=== PATIENT | male | born 1950 | race Hispanic/Latino ===

== ENCOUNTER 2017-02-02 12:01 | Emergency (ER) | payer MEDICARE, OTHER ==
[2017-02-02 12:07] VITALS: BP 138/71; PULSE 94; RESP 18; TEMP 98.7; O2SAT 100; BMI 25.0
--- NOTE | 2017-02-02 12:33 | ED PDOC ---
Lower Extremity Pain/Injury Time Seen by Provider: 02/02/17 12:09 Chief Complaint (Provider): knee pain History Per: Patient History/Exam Limitations: no limitations Onset/Duration Of Symptoms: Persistent Current Symptoms Are (Timing): Still Present Additional History Per: Patient Additional Complaint(s): The patient is a 66yo male, past medical history of gastritis, presents to the ED for evaluation of bilateral cramping pain in his quadriceps which he attributes to withdrawal symptoms. Patient reports he has had bilateral knee replacements and 4 other lower extremity surgeries and in order to manage his pain, he has been taking Tramadol. The patient says Dr. Whitten, who he follows up with for the pain, provides him with Tramadol but since Dr. Whitten has been on vacation, the patient states he has not been able to refill and continue his medication. The patient also states he has been attempting to stop using narcotics for his pain and has been using lidocaine patches and Motrin for his pain; patient states he has minimal relief and the Motrin "eats away" at his stomach. Of note, patient states he has been given Suboxone in the past and has had no relief of his withdrawal symptoms with this med. Patient reports associated diarrhea and feeling agitated. PCP: Dr. Whitten Past Medical History Reviewed: Historical Data, Nursing Documentation, Vital Signs Vital Signs: Last Vital Signs Temp 98.7 F 02/02/17 12:04 Pulse 94 H 02/02/17 12:04 Resp 18 02/02/17 12:04 BP 138/71 02/02/17 12:04 Pulse Ox 100 02/02/17 12:04 - Medical History PMH: Hypercholesterolemia, Chronic Pain - Surgical History Other surgeries: bilateral knee replacements, lower extremity surgeries - Family History Family History: States: No Known Family Hx - Living Arrangements Living Arrangements: With Family - Social History Current smoker - smoking cessation education provided: Yes (less than 1 pack per day) Alcohol: None Drugs: Denies - Home Medications Home Medications: Ambulatory Orders Medication Instructions Recorded Atorvastatin [Lipitor] 20 mg PO DAILY 02/02/17 Lidoderm Patch Removal 1 unit TOP DAILY #30 ea 02/02/17 Omeprazole Magnesium [Prilosec Otc] 20 mg PO DAILY 02/02/17 Tizanidine HCl [Zanaflex] 4 mg PO 02/02/17 - Allergies Allergies/Adverse Reactions: Allergies Allergy/AdvReac Type Severity Reaction Status Date / Time No Known Allergies Allergy Verified 02/02/17 12:25 Wells Criteria for PE - Wells Criteria for Pulmonary Embolism Clinical Signs and Symptoms of DVT: No P.E is #1 Diagnosis, or Equally Likely: No Heart Rate >100: No Immobilization at least 3 days;Surgery previous 4 weeks: No Previous, objectively diagnosed PE or DVT: No Hemoptysis: No Malignancy w/treatment within 6 months, or palliative: No Total Score: 0 Review of Systems ROS Statement: Except As Marked, All Systems Reviewed And Found Negative Constitutional: Negative for: Fever, Chills, Weakness Cardiovascular: Negative for: Chest Pain, Palpitations Respiratory: Negative for: Cough Gastrointestinal: Positive for: Diarrhea (intermittent). Negative for: Nausea, Vomiting Genitourinary Male: Negative for: Incontinence Musculoskeletal: Positive for: Other (chronic bilateral leg pain) Neurological: Negative for: Weakness, Numbness Psych: Positive for: Other (agitated) Physical Exam - Reviewed Nursing Documentation Reviewed: Yes Vital Signs Reviewed: Yes - Physical Exam Appears: Positive for: Well, Non-toxic, No Acute Distress Skin: Negative for: Rash Eye Exam: Positive for: Normal appearance Cardiovascular/Chest: Positive for: Regular Rate, Rhythm Respiratory: Positive for: Normal Breath Sounds Extremity: Positive for: Normal ROM, Other (full rom both knees with pain). Negative for: Calf Tenderness Neurologic/Psych: Positive for: Alert, Oriented, Gait (steady) - ECG O2 Sat by Pulse Oximetry: 100 (RA) Pulse Ox Interpretation: Normal Medical Decision Making Medical Decision Making: Time: 1215 Impression: 66 yo male complaining of bilateral chronic leg pain Plan: Patient was made aware of [facility] narcotic pain management policy. -- Toradol 30 mg IM Patient states toradol helped the pain. He was given rx tizanidine and lidocaine patch. 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 Scribe Attestation: Documented by Mckenzie Cruz acting as a scribe for CASEY Monte Provider Attestation: All medical record entries made by the Scribe were at my direction and personally dictated by me. I have reviewed the chart and agree that the record accurately reflects my personal performance of the history, physical exam, medical decision making, and the department course for this patient. I have also personally directed, reviewed, and agree with the discharge instructions and disposition. Disposition - Clinical Impression Clinical Impression: Chronic knee pain - Patient ED Disposition Is Patient to be Admitted: No Counseled Patient/Family Regarding: Diagnosis, Need For Followup, Rx Given - Disposition Referrals: Lowell Wild MD [Staff Provider] - Disposition: Routine/Home Disposition Time: 12:48 Condition: STABLE Additional Instructions: Take rx meds as directed. Follow up with parking line painter. Prescriptions: Lidoderm Patch Removal 1 unit TOP DAILY #30 ea Instructions: Knee Pain (ED), Chronic Pain (ED)
== END 2017-02-02 13:03 | disposition home or self-care (01) ==
LOC: H.ER 12:01
DX: M25.569 Pain in unspecified knee (principal); G89.29 Other chronic pain; Z96.653 Presence of artificial knee joint, bilateral
CPT/HCPCS: 96372; 99283; J1885